=== PATIENT | female | born 1945 | race African-American/Black ===

== ENCOUNTER 2017-02-01 18:10 | Emergency (ER) | payer OTHER ==
[2017-02-01 18:18] VITALS: BP 169/83; PULSE 72; TEMP 98.1; BMI 33.5
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
[2017-02-01] MEDS ORDERED: diazePAM 2 MG TABLET PO ONE ×2 (19:32→19:36)
[2017-02-01] MEDS ORDERED: clonazePAM 0.5 MG TABLET PO ONE (19:34)
[2017-02-01] MEDS ORDERED: diazePAM 2 MG TABLET ONE (19:37)
[2017-02-01] MEDS ORDERED: IBUPROFEN 400 MG TABLET (FP) PO ONE ×2 (20:50→20:55)
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
== END 2017-02-01 22:53 | disposition home or self-care (01) ==
LOC: JER 18:10
DX: M54.2 Cervicalgia (principal); M54.5 Low back pain; V43.62XA Car passenger injured in collision with other type car in traffic accident, initial encounter; Y92.414 Local residential or business street as the place of occurrence of the external cause; Y93.89 Activity, other specified; Y99.8 Other external cause status; I10 Essential (primary) hypertension; E78.00 Pure hypercholesterolemia, unspecified; E11.9 Type 2 diabetes mellitus without complications; Z79.84 Long term (current) use of oral hypoglycemic drugs; E05.80 Other thyrotoxicosis without thyrotoxic crisis or storm; J45.909 Unspecified asthma, uncomplicated; D64.9 Anemia, unspecified; F41.9 Anxiety disorder, unspecified; K21.9 Gastro-esophageal reflux disease without esophagitis
CPT/HCPCS: 72110-TC; 72125-TC; 72220-TC; 99283-25

== ENCOUNTER 2019-02-27 10:33 | Emergency (ER) | payer OTHER | END 2019-02-27 13:20 | disposition home or self-care (01) | LOC: JER 10:33 → JERFT 13:20 ==

== ENCOUNTER 2019-05-17 21:20 | Emergency (ER) | payer OTHER ==
[2019-05-17] MEDS ORDERED: ASPIRIN 81 MG CHEWABLE TABLETS PO ONE (21:25)
--- NOTE | 2019-05-17 21:25 | PDOC ---
Rapid Medical Evaluation Time Seen by Provider: 05/17/19 21:23 Medical Evaluation: Allergies Allergy/AdvReac Type Severity Reaction Status Date / Time No Known Allergies Allergy Verified 02/27/19 11:55 05/17/19 21:23 HPI: R foot swelling after a mirrior fell onto the foot 4 days ago and SOB since 6 pm this evening PE: Lungs clear ORDERS: x-ray R foot and cardiac work up Discharge Disposition - Diagnosis SOB (shortness of breath) - Referrals - Patient Instructions - Post Discharge Activity
[2019-05-17 21:26] VITALS: TEMP 98.1; BMI 32.5
[2019-05-17 22:11] LABS: BASO % 1.2 % (0-2.0); EOS % 0.6 % (0-4.5); HEMATOCRIT 38.2 % (32.4-45.2); HEMOGLOBIN 12.2 GM/dL (10.7-15.3); LYMPH % 45.2 % (8-40); MCH 29.4 pg (25.7-33.7); MCHC 32.1 g/dl (32.0-36.0); MEAN CELL VOLUME 91.6 fl (80-96); MONO % 7.7 % (3.8-10.2); NEUT % 45.3 % (42.8-82.8); PLATELET COUNT 326 K/MM3 (134-434); RBC 4.16 M/mm3 (3.60-5.2); RDW 15.4 % (11.6-15.6); WHITE BLOOD COUNT 7.5 K/mm3 (4.0-10.0)
[2019-05-17] MEDS ORDERED: ASPIRIN 81 MG CHEWABLE TABLETS ONE (22:15)
[2019-05-17 22:26] LABS: INR 0.94 (0.83-1.09); PROTHROMBIN TIME (PATIENT) 11.1 SEC (9.7-13.0)
--- NOTE | 2019-05-17 22:40 | PDOC ---
Documentation entered by Makenzie Lloyd SCRIBE, acting as scribe for Kerry Coker MD. Kerry Coker MD: This documentation has been prepared by the Gabino mata Brenda, SCRIBE, under my direction and personally reviewed by me in its entirety. I confirm that the documentation accurately reflects all work, treatment, procedures, and medical decision making performed by me. Attending Attestation - Resident Resident Name: Ricky Mcneil - ED Attending Attestation I have performed the following: I have examined & evaluated the patient, The case was reviewed & discussed with the resident, I agree w/resident's findings & plan, Exceptions are as noted - HPI HPI: 05/17/19 21:57 The patient is a 73 year old female, with a significant PMH of hypertension, hyperlipidemia, diabetes and hypothyroidism, who presents to the emergency department with left foot swelling, after mirror fell onto her foot 4 days ago. Allergies: NKA Past surgical history: HIATAL HERNIA X 5: 2012, STENTS X 2, GASTRIC BYPASS Social history: Denies any tobacco use, alcohol use, or illicit drug use. PCP: Dean - Physicial Exam PE: 05/17/19 21:56 GENERAL: Well-appearing, well-nourished 73 yo female complaing of right foot pain and shortness of breadth today . No apparent distress. HEENT: Normocephalic, atraumatic. PERRL, EOM intact. CARDIOVASCULAR: Normal S1, S2. Regular rate and rhythm. PULMONARY: Clear to auscultation bilaterally. ABDOMEN: Soft, non-distended, non-tender. EXTREMITIES: mild erythema and tenderness to the dorsal aspect of her right foot, mild edema to LE SKIN: Warm, dry. No rash NEUROLOGICAL: axox3,moving all her extremities,conversant 05/17/19 22:37 - Medical Decision Making 05/17/19 22:41 73-year-old female presents with right foot erythema and tenderness and complaint of shortness of breath that started today Past medical history significant for coronary artery disease status post LAD stent, cardiac catheterizations in 2009 and 2011 also, [id number] diabetes aortic regurg, GERD, hypothyroidism, migraines, chronic low back pain 05/18/19 01:40 Patient uses Symbicort and albuterol on a daily basis She felt better after she had her bronchodilator treatment Radiograph of the foot does not show any acute fractures She has no fever she does not have an elevated WBC 05/18/19 01:47 plan: repeat troponin
[2019-05-17 22:46] LABS: ALBUMIN 3.5 g/dl (3.4-5.0); ALK PHOS 59 U/L (45-117); ANION GAP 9 MMOL/L (8-16); BILIRUBIN,TOTAL 0.2 mg/dL (0.2-1); BLOOD UREA NITROGEN 15.6 mg/dL (7-18); CHLORIDE 110 mmol/L (98-107); CO2 25 mmol/L (21-32); CREATININE 1.1 mg/dL (0.55-1.3); GLUCOSE,RANDOM 89 mg/dL (74-106); MAGNESIUM 1.3 mg/dL (1.8-2.4); POTASSIUM 4.1 mmol/L (3.5-5.1); SGOT/AST 15 U/L (15-37); SGPT/ALT 16 U/L (13-61); SODIUM 144 mmol/L (136-145); TOT PROT 7.3 g/dl (6.4-8.2)
--- NOTE | 2019-05-17 22:55 | PDOC ---
History of Present Illness - General Chief Complaint: Shortness of Breath Stated Complaint: DIFFICULTY BREATHING Time Seen by Provider: 05/17/19 21:23 History Source: Patient Exam Limitations: No Limitations - History of Present Illness Initial Comments: 05/19/19 19:14 HPI: 73F PMH CAD s/p 2 stents, HTN, HLD, NIIDM, Hypothyroidism, asthma presenting with right foot pain and shortness of breath. Pt states a glass table top fell on her right foot, now w/ pain and swelling. Pt able to ambulate and bear weight on that foot. No penetrating wounds. Currently being seen by podiatry for peripheral neuropathy. SOB started today, worse w/ laying down flat, states that her asthma medications helped "a little." Endorses b/l LE edema. Denies f/c , cp, palpitations, n/v/d, dysuria, frequency. PMH: as above PSH: gastric bypass, hiatal hernia repair PCP: Dr. Dean GONZALES Denies smoking etoh Past History - Past Medical History Allergies/Adverse Reactions: Allergies Allergy/AdvReac Type Severity Reaction Status Date / Time No Known Allergies Allergy Verified 02/27/19 11:55 Home Medications: Ambulatory Orders Carvedilol [Coreg -] 25 mg PO BID 04/14/14 Hydrocodone/Acetaminophen [Dayton 10-325 Tablet] 1 each PO PRN PRN 04/14/14 Levothyroxine [Synthroid -] 75 mcg PO DAILY 04/14/14 metFORMIN HCL [Glucophage] 1,000 mg PO BID 04/14/14 Losartan/Hydrochlorothiazide [Losartan-Hctz 100-25 mg Tab] 1 each PO DAILY 02/10 Acetaminophen/Caffeine/Butalb [Fioricet -] 1 tab PO Q6H #10 tablet 07/22/15 Aspirin [ASA -] 81 mg PO DAILY 07/22/15 Methylprednisolone [Medrol Dose Stephan] 4 mg PO ASDIR #21 tablet 07/22/15 Carbamide Peroxide [Debrox] 5 ml AU BID #1 bottle 09/30/15 Lidocaine 5% Patch [Lidoderm -] 1 patch TP DAILY PRN #30 patch 02/01/17 Methocarbamol [Robaxin -] 500 mg PO BID PRN #20 tablet 02/01/17 Meloxicam [Mobic] 15 mg PO DAILY PRN #10 tablet 02/27/19 Methocarbamol [Robaxin -] 500 mg PO BID #14 tablet 02/27/19 Cephalexin [Keflex] 500 mg PO BID #14 capsule 05/18/19 Anemia: Yes Asthma: Yes Cardiac Disorders: Yes (CAD) COPD: No Diabetes: Yes GI Disorders: Yes (ACID REFLUX) HTN: Yes Hypercholesterolemia: Yes Psychiatric Problems: Yes (anxiety) Thyroid Disease: Yes (hyper) - Surgical History Abdominal Surgery: Yes (HIATAL HERNIA X 5: 2012) Cardiac Surgery: Yes (STENTS X 2) Gastric Stapling: (GASTRIC BYPASS) GI Surgery: Yes (hiatal) - Immunization History Immunization Up to Date: Yes - Psycho Social/Smoking Cessation Hx Smoking Status: No Smoking History: Never smoked Have you smoked in the past 12 months: No Number of Cigarettes Smoked Daily: 0 Hx Alcohol Use: No Drug/Substance Use Hx: No Substance Use Type: None Hx Substance Use Treatment: No Review of Systems - Review of Systems Able to Perform ROS?: Yes Comments:: 05/19/19 19:14 ROS: CONSTITUTIONAL: Denies F / C HEENT: Endorses mucosal ulcer (1 wk, healing). Denies sore throat, rhinorrhea. RESP: Endorses SOB, orthopnea. Denies cough. CARD: Denies chest pain, palpitations GI: Endorses abdominal pain (chronic, h/o hiatal hernia being eval'd by surgery) . Denies N / V / D, bloody stool, inability to tolerate PO : Denies dysuria, hematuria Is the patient limited Swiss proficient: No *Physical Exam - Vital Signs Last Vital Signs Temp Pulse Resp BP Pulse Ox 98.1 F 71 19 141/63 99 05/17/19 21:23 05/17/19 21:23 05/17/19 21:23 05/17/19 21:23 05/17/19 21:23 - Physical Exam Comments: 05/19/19 19:14 PE: GEN: Well appearing, NAD, comfortable. AAOx3 HEENT: NC/AT. No facial asymmetry. Moist mucous membranes, 1cm lesion of the hard palate. Normal voice. Supple neck w/ FROM. CV: S1/S2, RRR, no m/r/g LUNG: CTAB, no wheezes, crackles, rales, rhonchi. GI: soft, nd, +BS, no guarding, no rebound. EXTREMITIES: 1+ pitting edema b/l LE. +TTP dorsal aspect of the right foot w/ ecchymosis of the 2nd toe. No obvious deformities. SKIN: warm, dry, normal turgor PSYCH: normal mood and affect NEURO: FROM and strength of b/l LE. symmetric sensation ED Treatment Course - LABORATORY CBC & Chemistry Diagram: 05/17/19 22:00 05/17/19 22:00 - ADDITIONAL ORDERS Additional order review: Laboratory Results 05/17/19 22:00 PT with INR 11.10 INR 0.94 05/17/19 22:00 RBC 4.16 MCV 91.6 MCHC 32.1 RDW 15.4 MPV 8.0 Neutrophils % 45.3 Lymphocytes % 45.2 H Monocytes % 7.7 Eosinophils % 0.6 Basophils % 1.2 - Medications Given in the ED: ED Medications Discontinued Medications Generic Name Dose Route Start Last Admin Trade Name Freq PRN Reason Stop Dose Admin Aspirin 162 mg 05/17/19 21:25 05/17/19 22:17 Asa - PO 05/17/19 21:26 162 mg ONCE ONE Administration Medical Decision Making - Medical Decision Making 05/17/19 22:33 MDM: 73F presenting with 1 day of orthopnic SOB and right dorsal foot pain, swelling , and erythema s/p glass table top falling. No penetrating wounds. weight bearing. DDX - r/o fracture. ACS, pneumonia, CHF, COPD, asthma exacerbations - CBC, CMP, BNP, Cardiac - EKG - CXR - UA 05/17/19 23:00 labs reviewed trop neg f/u BNP 05/17/19 23:20 BNP reviewed f/u XRs 05/17/19 23:34 reassessed pt - not feeling sob unless she lies down pt uses symbicort twice a day used albuterol today before coming in to ED c/o back pain (chronic) and foot pain -> tylenol 05/18/19 01:39 patient feeling better rpt trop 05/19/19 02:00 Signed out to PM team Discharge - Discharge Information Problems reviewed: Yes Clinical Impression/Diagnosis: SOB (shortness of breath) Condition: Stable Disposition: HOME - Additional Discharge Information Prescriptions: Cephalexin [Keflex] 500 mg PO BID #14 capsule - Follow up/Referral Referrals: Trent Moran [Primary Care Provider] - - Patient Discharge Instructions Patient Printed Discharge Instructions: DI for Shortness of Breath Additional Instructions: Continue your home medications as prescribed. We sent you an antibiotic to [facility] on [address], pick it up and take as directed. Follow up with your Primary Care Doctor in the next 3-5 days regarding this visit. IMMEDIATELY return to the Emergency Department if you experience any of the following: - chest pain - high fever - streaking of the leg - worsening of your symptoms - ANY new or concerning symptoms - Post Discharge Activity
[2019-05-17 23:14] LABS: N-TERMINAL BNP 258.9 pg/ml (5-125)
[2019-05-17] MEDS ORDERED: ACETAMINOPHEN 500 MG TABLET (FP) PO ONE (23:21)
[2019-05-17] MEDS ORDERED: ACETAMINOPHEN 325 MG TABLET (FP) ONE (23:22)
--- NOTE | 2019-05-18 02:15 | PDOC ---
*Physical Exam - Vital Signs Last Vital Signs Temp Pulse Resp BP Pulse Ox 98.1 F 71 19 141/63 99 05/17/19 21:23 05/17/19 21:23 05/17/19 21:23 05/17/19 21:23 05/17/19 21:23 - Physical Exam General Appearance: Yes: Nourished, Appropriately Dressed, Obese. No: Apparent Distress HEENT: positive: EOMI, AGAPITO, Normal ENT Inspection, Normal Voice, Symmetrical. negative: Scleral Icterus (R), Scleral Icterus (L) Neck: positive: Supple. negative: Lymphadenopathy (R), Lymphadenopathy (L) Respiratory/Chest: positive: Lungs Clear, Normal Breath Sounds. negative: Respiratory Distress, Accessory Muscle Use Cardiovascular: positive: Regular Rhythm, Regular Rate Gastrointestinal/Abdominal: positive: Normal Bowel Sounds, Soft. negative: Tender Musculoskeletal: positive: Normal Inspection Extremity: positive: Normal Capillary Refill, Normal Inspection, Normal Range of Motion Integumentary: positive: Normal Color, Dry, Warm Neurologic: positive: Alert, Normal Mood/Affect, Normal Response ED Treatment Course - LABORATORY CBC & Chemistry Diagram: 05/17/19 22:00 05/17/19 22:00 - ADDITIONAL ORDERS Additional order review: Laboratory Results 05/17/19 05/17/19 22:00 22:00 PT with INR 11.10 INR 0.94 Sodium 144 Potassium 4.1 Chloride 110 H Carbon Dioxide 25 Anion Gap 9 BUN 15.6 Creatinine 1.1 Est GFR (CKD-EPI)AfAm 57.68 Est GFR (CKD-EPI)NonAf 49.77 Random Glucose 89 Calcium 10.0 Magnesium 1.3 L Total Bilirubin 0.2 AST 15 ALT 16 Alkaline Phosphatase 59 Creatine Kinase 107 Troponin I < 0.02 B-Natriuretic Peptide 258.9 H Total Protein 7.3 Albumin 3.5 05/17/19 22:00 RBC 4.16 MCV 91.6 MCHC 32.1 RDW 15.4 MPV 8.0 Neutrophils % 45.3 Lymphocytes % 45.2 H Monocytes % 7.7 Eosinophils % 0.6 Basophils % 1.2 - Medications Given in the ED: ED Medications Discontinued Medications Generic Name Dose Route Start Last Admin Trade Name Freq PRN Reason Stop Dose Admin Acetaminophen 975 mg 05/17/19 23:21 05/17/19 23:36 Tylenol - PO 05/17/19 23:22 975 mg ONCE ONE Administration Aspirin 162 mg 05/17/19 21:25 05/17/19 22:17 Asa - PO 05/17/19 21:26 162 mg ONCE ONE Administration Medical Decision Making - Medical Decision Making 05/18/19 02:08 Signed out to me by Dr. Mcneil. Presents with asthma-like picture, SOB, chest tightness trop, ECG normal Dropped a mirror on her foot, no fracture, erythematous Giving 500mg bid Keflex for 7 days Needs a 2nd trop and can discharge home [] 2nd trop [] dispo 05/18/19 03:31 2nd troponin negative. Patient feels well, no complaints at this time. Reviewed discharge summary. Patient stable to discharge home with PMD f/u Discharge - Discharge Information Problems reviewed: Yes Clinical Impression/Diagnosis: SOB (shortness of breath) Condition: Stable Disposition: HOME - Admission No - Additional Discharge Information Prescriptions: Cephalexin [Keflex] 500 mg PO BID #14 capsule - Follow up/Referral Referrals: Trent Moran [Primary Care Provider] - - Patient Discharge Instructions Patient Printed Discharge Instructions: DI for Shortness of Breath Additional Instructions: Continue your home medications as prescribed. We sent you an antibiotic to [facility] on [address], pick it up and take as directed. Follow up with your Primary Care Doctor in the next 3-5 days regarding this visit. IMMEDIATELY return to the Emergency Department if you experience any of the following: - chest pain - high fever - streaking of the leg - worsening of your symptoms - ANY new or concerning symptoms - Post Discharge Activity
[2019-05-18 04:46] VITALS: BP 134/67; PULSE 73
--- NOTE | 2019-05-18 11:05 | EKG ---
Test Reason : Blood Pressure : / mmHG Vent. Rate : 066 BPM Atrial Rate : 066 BPM P-R Int : 174 ms QRS Dur : 072 ms QT Int : 388 ms P-R-T Axes : 062 -09 038 degrees QTc Int : 406 ms POOR DATA QUALITY, INTERPRETATION MAY BE ADVERSELY AFFECTED NORMAL SINUS RHYTHM POSSIBLE LEFT ATRIAL ENLARGEMENT CANNOT RULE OUT ANTERIOR INFARCT (CITED ON OR BEFORE 25-SEP-2016) ABNORMAL ECG WHEN COMPARED WITH ECG OF 19-MAY-2017 21:02, CRITERIA FOR INFERIOR INFARCT ARE NO LONGER PRESENT QUESTIONABLE CHANGE IN INITIAL FORCES OF ANTERIOR LEADS Confirmed by Oli Babin MD ([id number]) on 05/18/2019 11:04:47 AM Referred By: Confirmed By:Oli Babin MD
== END 2019-05-18 04:40 | disposition home or self-care (01) ==
LOC: JER 21:20
DX: R06.02 Shortness of breath (principal); S99.821A Other specified injuries of right foot, initial encounter; W20.8XXA Other cause of strike by thrown, projected or falling object, initial encounter; Y93.89 Activity, other specified; Y92.038 Other place in apartment as the place of occurrence of the external cause; Y99.8 Other external cause status; I25.10 Atherosclerotic heart disease of native coronary artery without angina pectoris; I10 Essential (primary) hypertension; E03.9 Hypothyroidism, unspecified; E78.00 Pure hypercholesterolemia, unspecified; E11.9 Type 2 diabetes mellitus without complications; Z79.84 Long term (current) use of oral hypoglycemic drugs; K21.9 Gastro-esophageal reflux disease without esophagitis; J45.909 Unspecified asthma, uncomplicated; D64.9 Anemia, unspecified; Z98.84 Bariatric surgery status; Z87.19 Personal history of other diseases of the digestive system; Z98.890 Other specified postprocedural states; Z79.82 Long term (current) use of aspirin
CPT/HCPCS: 36415; 71046-TC-FY; 73630-TC-RT-FY; 80053; 82550; 83735; 83880; 84484; 85025; 85610; 93005; 93010; 99283-25

== ENCOUNTER 2019-07-26 10:00 | Emergency (ER) | payer OTHER ==
[2019-07-26 10:06] VITALS: BP 154/90; PULSE 67; TEMP 97.9; BMI 34.0
--- NOTE | 2019-07-26 11:46 | PDOC ---
History of Present Illness - General Chief Complaint: Injury Stated Complaint: LT WRIST PAIN Time Seen by Provider: 07/26/19 11:07 - History of Present Illness Initial Comments: 07/26/19 11:41 73-year-old female with multiple comorbidities presents for evaluation of left wrist pain after a fall 5 days ago. She states she was walking up the steps extended her left arm to break her from falling. She tripped going up the steps. She has left wrist pain since that time. Past History - Past Medical History Allergies/Adverse Reactions: Allergies Allergy/AdvReac Type Severity Reaction Status Date / Time No Known Allergies Allergy Verified 07/26/19 10:06 Home Medications: Ambulatory Orders Carvedilol [Coreg -] 25 mg PO BID 04/14/14 Hydrocodone/Acetaminophen [[place]ermo 10-325 Tablet] 1 each PO PRN PRN 04/14/14 Levothyroxine [Synthroid -] 75 mcg PO DAILY 04/14/14 metFORMIN HCL [Glucophage] 1,000 mg PO BID 04/14/14 Losartan/Hydrochlorothiazide [Losartan-Hctz 100-25 mg Tab] 1 each PO DAILY 02/10 Acetaminophen/Caffeine/Butalb [Fioricet Tablets] 1 tab PO Q6H #10 tablet Aspirin [ASA -] 81 mg PO DAILY 07/22/15 Methylprednisolone [Medrol Dose Stephan] 4 mg PO ASDIR #21 tablet 07/22/15 Carbamide Peroxide [Debrox] 5 ml AU BID #1 bottle 09/30/15 Lidocaine 5% Patch [Lidoderm -] 1 patch TP DAILY PRN #30 patch 02/01/17 Methocarbamol [Robaxin -] 500 mg PO BID PRN #20 tablet 02/01/17 Meloxicam [Mobic] 15 mg PO DAILY PRN #10 tablet 02/27/19 Methocarbamol [Robaxin -] 500 mg PO BID #14 tablet 02/27/19 Cephalexin [Keflex] 500 mg PO BID #14 capsule 05/18/19 Anemia: Yes Asthma: Yes Cardiac Disorders: Yes (CAD) COPD: No Diabetes: Yes GI Disorders: Yes (ACID REFLUX) HTN: Yes Hypercholesterolemia: Yes Psychiatric Problems: Yes (anxiety) Thyroid Disease: Yes (hyper) - Surgical History Abdominal Surgery: Yes (HIATAL HERNIA X 5: 2011) Cardiac Surgery: Yes (STENTS X 2) Gastric Stapling: (GASTRIC BYPASS) GI Surgery: Yes (hiatal) - Immunization History Immunization Up to Date: Yes - Psycho Social/Smoking Cessation Hx Smoking Status: No Smoking History: Never smoked Have you smoked in the past 12 months: No Number of Cigarettes Smoked Daily: 0 Hx Alcohol Use: No Drug/Substance Use Hx: No Substance Use Type: None Hx Substance Use Treatment: No Review of Systems - Review of Systems Musculoskeletal: Yes: Joint Pain *Physical Exam - Vital Signs Last Vital Signs Temp Pulse Resp BP Pulse Ox 97.9 F 67 16 154/90 97 07/26/19 10:04 07/26/19 10:04 07/26/19 10:04 07/26/19 10:04 07/26/19 10:04 - Physical Exam 07/26/19 11:41 Left wrist skin color and temperature normal range of motion is limited in flexion extension supination and pronation. Tenderness at the distal radius. Tenderness at the distal radius neurovascularly intact no other areas of tenderness snuffbox nontender. Ulnar styloid nontender. ED Treatment Course - RADIOLOGY Radiology Studies Ordered: Category Date Time Status WRIST-LEFT [RAD] Stat Radiology 07/26/19 11:09 Taken Medical Decision Making - Medical Decision Making 07/26/19 11:41 X-rays of the left wrist show no evidence of fracture trauma or destructive process. She does have what appears to be an old volar distal radial chip fracture. She is nontender in that area. Left wrist splint follow-up with orthopedics. Discharge - Discharge Information Problems reviewed: Yes Clinical Impression/Diagnosis: Left wrist sprain - Admission No - Follow up/Referral Referrals: Trent Moran [Primary Care Provider] - Merlin Nunn DO [Staff Physician] - - Patient Discharge Instructions Additional Instructions: Please wear the wrist splint for comfort. You may remove the splint for hygiene. Tylenol as directed for pain. Return to the emergency room for worsening symptoms. Without fail follow-up with orthopedic surgery in 2 to 3 days for further evaluation and treatment options. - Post Discharge Activity
== END 2019-07-26 12:23 | disposition home or self-care (01) ==
LOC: JERFT 10:00
PROC: 2W3DX1Z Immobilization of Left Lower Arm using Splint (ICD-10-PCS; principal; 2019-07-26)
DX: S63.502A Unspecified sprain of left wrist, initial encounter (principal); W10.8XXA Fall (on) (from) other stairs and steps, initial encounter; Y93.89 Activity, other specified; Y92.038 Other place in apartment as the place of occurrence of the external cause; Y99.8 Other external cause status; I25.10 Atherosclerotic heart disease of native coronary artery without angina pectoris; I10 Essential (primary) hypertension; Z95.5 Presence of coronary angioplasty implant and graft; E11.9 Type 2 diabetes mellitus without complications; Z79.84 Long term (current) use of oral hypoglycemic drugs; E05.90 Thyrotoxicosis, unspecified without thyrotoxic crisis or storm; E78.00 Pure hypercholesterolemia, unspecified; K21.9 Gastro-esophageal reflux disease without esophagitis; F41.9 Anxiety disorder, unspecified; Z98.84 Bariatric surgery status
CPT/HCPCS: 29126; 73110-TC-LT-FY; 99282-25